=== PATIENT | female | born 1965 | race Caucasian/White ===

== ENCOUNTER → 2017-01-25 | Outpatient (CLI) | payer OTHER ==
[~2017-01-25] MED LIST: ATV1 PO; B-COTAB18 PO; CZR50 PO; HYDR-4079 PO; IMD/2 PO; LAMO150T32 PO; MRC50 PO; MULT-506 PO; PRZ/40 PO; PSYL55.43 PO; RIVA1TAB PO; RMCI IV; SOTA80TA PO; SULF-183 PO; TRET10CA2; ZFR4 PO; [UNRECOGNIZED DRUG - CODE] PO
[2017-01-25 15:48] LABS: BASO % 0.6 %; BASO ABS # 0.03 K/uL (0-0.2); COMPLETE YES; EOS % 1.4 %; HEMATOCRIT 39.1 % (37-47); LYMPH % 39.5 %; LYMPH ABS # 1.95 K/uL (1.2-3.4); MEAN CELL VOLUME 93.8 fL (80-100); MEAN CORPUSCULAR HEMOGLOBIN 31.7 pg (25-34); MEAN CORPUSCULAR HGB CONC 33.8 g/dl (32-36); MEAN PLATELET VOLUME 8.9 fL (7.4-10.4); MONO % 9.9 %; NEUT % 48.6 %; PLATELET COUNT 351 K/uL (130-400); RED BLOOD COUNT 4.17 M/uL (4.2-5.4); WHITE BLOOD COUNT 4.94 K/uL (4.8-10.8)
[2017-01-25 16:22] LABS: ALT/SGPT 62 U/L (12-78); BLOOD UREA NITROGEN 11 mg/dl (7-18); C-REACTIVE PROTEIN < 0.29 mg/dl (0-0.29); CARBON DIOXIDE 28 mmol/L (21-32); CHLORIDE 101 mmol/L (98-107); CREATININE 0.63 mg/dl (0.60-1.20); GLUCOSE 100 mg/dl (70-99); POTASSIUM 4.1 mmol/L (3.5-5.1); SODIUM 138 mmol/L (136-145)
[2017-01-25 16:25] LABS: ALB/GLOB RATIO 0.7 (0.9-2); ALKALINE PHOSPHATASE 70 U/L (45-117); AST/SGOT 19 U/L (15-37)
[2017-01-25 16:42] LABS: CALCIUM 9.4 mg/dl (8.5-10.1)
== END | disposition home or self-care (01) ==
LOC: C.LAB 14:44
PROVIDERS: ATTEND Registered Nurse
DX: K50.90 Crohn's disease, unspecified, without complications (principal)

== ENCOUNTER → 2017-04-28 | Outpatient (CLI) | payer OTHER ==
[~2017-04-28] MED LIST changes: +GADAVIST IV PRN; +GLUCAGON FOR INJ 1 MG VIAL IM SCH; +NURSING VERBAL MED ORDER ONE
--- NOTE | 2017-04-28 13:50 | DIAGNOSTIC IMAGING REPORT ---
MRI ENTEROGRAPHY OF THE ABDOMEN AND PELVIS WITH AND WITHOUT CONTRAST CLINICAL HISTORY: Crohn's disease. COMPARISON STUDY: CT of the abdomen and pelvis April 24, 2016. TECHNIQUE: The patient ingested 2 bottles of Volumen. Utilizing 1.5 Harika magnet and dedicated coil, multiplanar, multiecho imaging of the abdomen and pelvis was performed pre and postcontrast demonstration. Post contrast imaging was performed utilizing dynamic enhancement following intravenous injection of 9 cc of Gadavist. 1 mg of glucagon was administered IM as per protocol. FINDINGS: This exam is mildly compromised by motion artifact. A gallstone is noted within the gallbladder. There is no biliary or pancreatic ductal dilatation. No common bile duct calculus is identified. The liver, spleen, adrenal glands, kidneys and pancreas are normal. Susceptibility artifact from a right hip arthroplasty is noted. There is no ascites. No abscess is identified within the abdomen or pelvis. No bowel wall thickening is identified on this exam. Postcontrast images are mildly compromised by motion artifact. There is no evidence for mucosal hyperemia. No lymphadenopathy is present. No stricture or fistula is identified on this examination. Caliber of the abdominal aorta is normal. Several uterine lesions are unchanged from earlier CTs and reflect fibroids. IMPRESSION: 1. Unremarkable MR enterography. No bowel wall thickening, hyperemia or stricture. No abscess or fistula. 2. Cholelithiasis. 3. Fibroid uterus. 4. Study mildly compromised by motion artifact. Electronically signed by: Thai Carroll M.D. 04/28/2017 1:48 PM Dictated Date/Time: 04/28/2017 1:39 PM
== END | disposition home or self-care (01) ==
LOC: C.MRI 10:26
PROVIDERS: ATTEND Registered Nurse
DX: K50.90 Crohn's disease, unspecified, without complications (principal); K80.20 Calculus of gallbladder without cholecystitis without obstruction

== ENCOUNTER → 2017-05-10 | Outpatient (CLI) | payer OTHER ==
[~2017-05-10] MED LIST changes: -GADAVIST IV PRN; -GLUCAGON FOR INJ 1 MG VIAL IM SCH; -NURSING VERBAL MED ORDER ONE
== END | disposition home or self-care (01) ==
LOC: C.PATHSPEC 11:10
PROVIDERS: ATTEND Nurse Practitioner Adult Health
DX: R31.29 Other microscopic hematuria (principal)

== ENCOUNTER → 2018-03-09 | Outpatient (CLI) | payer OTHER ==
[~2018-03-09] MED LIST changes: +ACET-1256 PO; +AMPH20TA2 PO; -ATV1 PO; -B-COTAB18 PO; +CYAN100020 PO; -CZR50 PO; +DIAZ10TA3 PV; +DICL1GEL12; +DPH/ PO; +ESCI1TAB18 PO; -HYDR-4079 PO; -IMD/2 PO; +LAMO150T PO; -LAMO150T32 PO; +LOSA1TAB38 PO; +METR0.7527; +ONDA4TAB9 PO; +OXYC-737 PO; -PRZ/40 PO; +PSYL48.59; -PSYL55.43 PO; -RIVA1TAB PO; +RIVA1TAB4 PO; -SULF-183 PO; -TRET10CA2; +TRET15GE; +VILA1TAB3 PO; -ZFR4 PO
[2018-03-09 12:22] LABS: HEMATOCRIT 39.8 % (37-47); HEMOGLOBIN 13.3 g/dL (12.0-16.0); MEAN CORPUSCULAR HEMOGLOBIN 31.1 pg (25-34); MEAN CORPUSCULAR HGB CONC 33.4 g/dl (32-36); MEAN PLATELET VOLUME 9.6 fL (7.4-10.4); PLATELET COUNT 349 K/uL (130-400); RED CELL DISTRIBUTION WIDTH CV 12.9 % (11.5-14.5); RED CELL DISTRIBUTION WIDTH SD 43.3 fL (36.4-46.3); WHITE BLOOD COUNT 4.66 K/uL (4.8-10.8)
[2018-03-09 12:51] LABS: BASO % 0.6 %; BASO ABS # 0.03 K/uL (0-0.2); EOS % 2.1 %; LYMPH % 54.9 %; LYMPH ABS # 2.56 K/uL (1.2-3.4); MONO % 8.2 %; MONO ABS # 0.38 K/uL (0.11-0.59); NEUT % 34.2 %; NEUT ABS # 1.59 K/uL (1.4-6.5)
[2018-03-09 13:08] LABS: ALBUMIN 3.6 gm/dl (3.4-5.0); ALKALINE PHOSPHATASE 71 U/L (45-117); ALT/SGPT 39 U/L (12-78); AST/SGOT 14 U/L (15-37); BLOOD UREA NITROGEN 9 mg/dl (7-18); CALCIUM 9.1 mg/dl (8.5-10.1); CARBON DIOXIDE 27 mmol/L (21-32); CREATININE 0.64 mg/dl (0.60-1.20); GLUCOSE 116 mg/dl (70-99); POTASSIUM 3.7 mmol/L (3.5-5.1); SODIUM 136 mmol/L (136-145); TOTAL PROTEIN 7.7 gm/dl (6.4-8.2)
[2018-03-11 11:18] LABS: QUANTIF MITOGEN-NIL 9.86 IU/ML; QUANTIFERON NEGATIVE (NEGATIVE); QUANTIFERON NIL 0.03 IU/ML
== END | disposition home or self-care (01) ==
LOC: C.LAB1850 11:23
PROVIDERS: ATTEND Registered Nurse
DX: R19.7 Diarrhea, unspecified (principal)

== ENCOUNTER → 2018-03-17 | Day surgery (SDC) | payer OTHER ==
[2018-03-07 15:50] VITALS: Ht 165.1 cm; Wt 88.6 kg
[~2018-03-17] VITALS: Ht 165.1 cm; Wt 88.6 kg
[~2018-03-17] MED LIST changes: +500ML BSS 0.3ML EPI 1:1000PF IRRIG ONE; +ACETAMINOPHEN 325 MG TAB PO PRN; +AMVISC PLUS 0.8ML SYRINGE INT OCU ONE; +ATROPINE SULFATE 0.1 MG/ML 5ML SYR IV PRN; +BSS FLUSH ONE; +EpINEphrine INJ 1MG/ML AMP 1 MG/ML AMP ONE; +GATIFLOXACIN OP SOLN PER DROP CHARGE OPL SCH; +KETOROLAC 0.5% OP SOLN PER DROP CHARGE OPL SCH; +LACTATED RINGER'S 1000ML 500 ML IV SCH; +LIDOCAINE 3.5% OPH GEL PER APPLICATION CHARGE ONE; +LIDOCAINE HCL 1% MPF 2 ML VIAL ONE; +MIDAZOLAM HCL 1 MG/ML 2ML VIAL ONE; +POVIDONE-IODINE OP SOLN 30 ML BTL ONE; +PROPARACAINE 0.5% OP SOLN PER DROP CHARGE OPL SCH; +TOBRAMYCIN/DEXAMETHASONE OPH OINT PER APPLN CHARGE ONE; +[UNRECOGNIZED DRUG - REMARK] SCH; +[UNRECOGNIZED DRUG - REMARK] SCH
[2018-03-17] MEDS: PHENYLEPHRINE HCL 2.5% OP SOLN PER DROP CHARGE OPL SCH ×2 (06:38→06:43)
[2018-03-17] MEDS: TROPICAMIDE 1% OP SOLN PER DROP CHARGE OPL SCH ×2 (06:39→06:44)
[2018-03-17] MEDS: CYCLOPENTOLATE HCL 1% OP SOLN PER DROP CHARGE OPL SCH ×2 (06:40→06:45)
[2018-03-17] MEDS: KETOROLAC 0.5% OP SOLN PER DROP CHARGE OPL SCH ×2 (06:46→06:51)
[2018-03-17] MEDS: CIPROFLOXACIN HCL 0.3% OP SOLN 2.5 ML BTL OP SCH ×2 (07:00→10:41)
--- NOTE | 2018-03-17 07:00 | History & Physical Bridge - SC ---
H&P Re-Evaluation Bridge Note: I have examined the patient, reviewed the History & Physical and in the interval since the performance of the History & Physical I have noted the following changes of clinical significance: No changes noted
--- NOTE | 2018-03-17 07:24 | [facility] Operative Report ---
Operative Report Date of Service Mar 17, 2018. Operative Report 1. PREOPERATIVE DIAGNOSIS: Cataract of the left eye. 2. POSTOPERATIVE DIAGNOSIS: Same. 3. PROCEDURE: Phacoemulsification with intraocular lens implantation of the left eye. SURGEON: Dr. Eric Rubalcava. ANESTHESIA: Topical Lidocaine gel, 1% Non- Preserved intracameral Lidocaine, and monitored intravenous sedation. INDICATIONS FOR THE PROCEDURE: The patient is a 52 - year-old female with a history of cataract of the left eye causing significant visual impairment. The details of the proposed procedure were explained to the patient who asked appropriate questions and following discussion of all risks, benefits and alternatives agreed to have the procedure done. Patient had corneal astigmatism and therefore elected to have a toric lens placed. 4. OPERATION AND FINDINGS: DESCRIPTION OF PROCEDURE: After informed consent was obtained, the patient was placed in an upright position and the cornea was marked at 71 degrees using the [employer] corneal marking tool. The patient was brought to the Operating Room at the [facility]. The patient was placed in a supine position and then the left eye was prepped and draped in the usual sterile fashion for intraocular surgery. A drop of topical Lidocaine gel was placed in the operative eye. A wire lid speculum was then placed in the fornices. A corneal paracentesis was then created temporally. The Non-Preserved Lidocaine was then instilled into the anterior chamber. The anterior chamber was then pressurized with viscoelastic. A 2.0 mm clear corneal incision was then created temporally. A cystotome was inserted into the anterior chamber and used to create a tear in the anterior lens capsule. This capsular tear was then used to create a small flap and the flap was dragged in a counterclockwise direction in order to create a continuous curvilinear capsulorrhexis. Hydrodissection was accomplished with balanced salt solution. Phacoemulsification of the lens nucleus was then performed in a standard [id number] technique. The phaco time was 6 seconds with an average power of 5 %. The remaining cortical material was removed using irrigation aspiration. The capsular bag was then filled with viscoelastic. A Nacho [id number] +12.0 diopters lens was then loaded into the injector and injected into the capsular bag. The remaining viscoelastic was removed with the irrigation aspiration handpiece. The lens was aligned with the previously made corneal rosado. The wound was hydrated and then checked and found to be watertight. The intraocular pressure was checked and found to be adequate. The wire lid speculum was removed and the patient's face was cleaned and dried. TobraDex ointment was placed in the inferior fornix. The patient was discharged to the Recovery Room having tolerated the procedure well. There were no complications. The patient will be seen tomorrow in the office for follow-up. I attest to the content of the Intraoperative Record and any orders documented therein. Any exceptions are noted below.
--- NOTE | 2018-03-17 07:25 | Discharge Instructions-SurgCtr ---
Discharge Instructions Date of Service Mar 17, 2018. Visit Reason for Visit: Cataract Left Eye Discharge Discharge Diagnosis / Problem: cataract Discharge Goals Goal(s): Improve function Activity Recommendations Activity Limitations: per Instructions/Follow-up section Anesthesia . Post Anesthesia Instructions: If you have had General Anesthesia or IV Sedation: * Do not drive today. * Resume driving when surgeon permits. * Do not make important decisions or sign legal documents today. * Call surgeon for: 1. Temperature elevations greater than 101 degrees F. 2. Uncontrollable pain. 3. Excessive bleeding. 4. Persistent nausea and vomiting. 5. Medication intolerance (nausea, vomiting or rash). * For nausea and vomiting use only clear liquids such as: tea, soda, bouillon until nausea subsides, then gradually increase diet as tolerated. * If you have any concerns or questions, call your surgeon's office. If physician is unavailable and it is an emergency, call 911 or go to the nearest emergency room. . Diet Recommendations Home Diet: resume previous diet Procedures Procedures Performed: Left Cataract Phacoemulsification With Intraocular Lens Implant; Toric Lens Pending Studies Studies pending at discharge: no Medical Emergencies . Who to Call and When: Medical Emergencies: If at any time you feel your situation is an emergency, please call 911 immediately. . Non-Emergent Contact Non-Emergency issues call your: [employer] . . "Provider Documentation" section prepared by Eric Rubalcava. .
[2018-03-17 07:27] VITALS: TEMP 36.9
--- NOTE | 2018-03-17 07:49 | Anesthesia Progress Nt - [facility] ---
Anesthesia Post Op Note Date & Time Mar 17, 2018 at 07:49 Vital Signs Pain Intensity: 0 Vital Signs Past 12 Hours Date Time Temp Pulse Resp B/P (MAP) Pulse Ox O2 Delivery O2 Flow Rate FiO2 03/17/18 07:27 36.9 62 18 118/73 (88) 98 Room Air 03/17/18 06:50 36.0 63 18 148/81 (103) 96 Room Air Notes Mental Status: alert / awake / arousable, participated in evaluation Pt Amnestic to Procedure: Yes Nausea / Vomiting: adequately controlled Pain: adequately controlled Airway Patency, RR, SpO2: stable & adequate BP & HR: stable & adequate Hydration State: stable & adequate Anesthetic Complications: no major complications apparent
[2018-03-17 07:52] VITALS: BP 126/84; PULSE 55; O2SAT 100
== END | disposition home or self-care (01) ==
LOC: X.SURG 06:21
PROVIDERS: ATTEND Ophthalmology
DX: H26.9 Unspecified cataract (principal)

== ENCOUNTER → 2018-03-31 | Outpatient (CLI) | payer OTHER ==
[~2018-03-31] MED LIST changes: -500ML BSS 0.3ML EPI 1:1000PF IRRIG ONE; -ACETAMINOPHEN 325 MG TAB PO PRN; -AMVISC PLUS 0.8ML SYRINGE INT OCU ONE; -ATROPINE SULFATE 0.1 MG/ML 5ML SYR IV PRN; -BSS FLUSH ONE; -EpINEphrine INJ 1MG/ML AMP 1 MG/ML AMP ONE; -GATIFLOXACIN OP SOLN PER DROP CHARGE OPL SCH; -KETOROLAC 0.5% OP SOLN PER DROP CHARGE OPL SCH; -LACTATED RINGER'S 1000ML 500 ML IV SCH; -LIDOCAINE 3.5% OPH GEL PER APPLICATION CHARGE ONE; -LIDOCAINE HCL 1% MPF 2 ML VIAL ONE; -MIDAZOLAM HCL 1 MG/ML 2ML VIAL ONE; -POVIDONE-IODINE OP SOLN 30 ML BTL ONE; -PROPARACAINE 0.5% OP SOLN PER DROP CHARGE OPL SCH; -TOBRAMYCIN/DEXAMETHASONE OPH OINT PER APPLN CHARGE ONE; -[UNRECOGNIZED DRUG - REMARK] SCH; -[UNRECOGNIZED DRUG - REMARK] SCH
== END | disposition home or self-care (01) ==
LOC: C.LAB1850 14:36
PROVIDERS: ATTEND Psychiatry & Neurology Neurology
DX: R41.3 Other amnesia (principal); G40.909 Epilepsy, unspecified, not intractable, without status epilepticus

== ENCOUNTER → 2018-04-01 | Outpatient (CLI) | payer OTHER | END | disposition home or self-care (01) | LOC: C.LAB1850 13:13 | PROVIDERS: ATTEND Psychiatry & Neurology Neurology | DX: G40.909 Epilepsy, unspecified, not intractable, without status epilepticus (principal); Z51.81 Encounter for therapeutic drug level monitoring; Z79.899 Other long term (current) drug therapy ==